=== PATIENT | female | born 1995 | race Caucasian/White ===

== ENCOUNTER 2019-10-22 12:07 | Outpatient (CLI) | payer OTHER, SELFPAY ==
[2019-10-22 12:27] LABS: Basophils Percent Auto 0.2 % (0.2-1.2); Eosinophils Absolute Auto 0.1 K/mm3 (0-0.3); Eosinophils Percent Auto 1.2 % (0-4.4); Hematocrit 39.1 % (37.0-47.0); Hemoglobin 13.1 g/dL (12.0-15.0); Immature Granulocyte Absolute 0.02 K/mm3 (0.00-0.031); Immature Granulocyte Percent A 0.2 % (0-0.5); Lymphocytes Absolute Auto 1.83 K/mm3 (0.9-3.2); Lymphocytes Percent Auto 21.4 % (18.3-44.2); Mean Corpuscular HGB Conc 33.5 g/dl (32-36); Mean Corpuscular Hemoglobin 29.9 pg (26-34); Mean Corpuscular Volume 89.3 fl (80-100); Mean Platelet Volume 12.5 fl (7.4-10.4); Monocytes Absolute Auto 0.4 K/mm3 (0.1-0.6); Monocytes Percent Auto 5.2 % (2.6-8.5); Neutrophils Absolute Auto 6.1 K/mm3 (1.3-6.7); Neutrophils Percent Auto 71.8 % (45.5-73.1); Platelet Count Result 149 k/mm3 (150-375); Red Blood Count 4.38 M/mm3 (4.2-5.4); White Blood Count 8.5 K/mm3 (4.5-10.0)
[2019-10-23 11:27] LABS: Rapid Plasma Reagin Non-Reactive (NonReactive)
== END 2019-10-22 12:08 | disposition home or self-care (01) ==
PROVIDERS: PCP Family Medicine; Visit Provider Obstetrics & Gynecology
DX: Z34.93 Encounter for supervision of normal pregnancy, unspecified, third trimester (principal); Z3A.00 Weeks of gestation of pregnancy not specified
CPT/HCPCS: 36415; 85025; 86592; 86850; 86900; 86901

== ENCOUNTER 2019-10-23 05:16 | Inpatient (IN) | payer OTHER, SELFPAY ==
[2019-09-25 12:33] VITALS: BMI 41.6
--- NOTE | 2019-10-22 06:13 | HP_ITS ---
DATE OF SERVICE: 10/23/2019 HISTORY OF PRESENT ILLNESS: The patient is 24-year-old G3, P1-1-0-2 at 39 weeks and 1 day gestation. She has had a history of 2 prior C-sections. She is coming in for a scheduled repeat and tubal ligation. Her has been uncomplicated. She is feeling normal movement, occasional contractions. No vaginal bleeding and no leakage of fluid. PAST MEDICAL HISTORY: Negative. MEDICATIONS: vitamin. ALLERGIES: NO KNOWN DRUG ALLERGIES. PAST SURGICAL HISTORY: x2. SOCIAL HISTORY: She has been smoking a pack a day prior to . She now smokes about half a pack a day. Denies alcohol or drug use. 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 OB HISTORY: She has had 2 C-sections, one was at 36 weeks and she had preeclampsia and one was at full-term. REVIEW OF SYSTEMS: Negative. PHYSICAL EXAMINATION: VITAL SIGNS: Her weight is 223, blood pressure 130/81. GENERAL: No apparent distress. HEART: Regular rate and rhythm. LUNGS: Clear to auscultation. ABDOMEN: Gravid, soft, nontender, nondistended. EXTREMITIES: Nontender with trace edema. PELVIC: Last cervical exam, 1 cm thick, -3 station, soft and posterior. ASSESSMENT AND PLAN: 1. G3, P1-1-0-2 at 39 weeks and 1 day with history of 2 prior C-sections. The plan is for repeat . 2. status is reassuring. 3. Desires tubal ligation. She had signed consent in the office on August 04, 2019 and has expressed a continued desire for sterilization, so the plan is for bilateral tubal ligation along with . 4. GBS is negative. D I MT: Radha
[2019-10-23] VITALS (57 sets, daily range): BP systolic 86–138; BP diastolic 34–99; PULSE 54–77; RESP 13–18; TEMP 36.2–37.4; O2SAT 96–100; BMI 42.5
--- NOTE | 2019-10-23 05:33 | LDADM ---
This patient, Marina Elaine, was admitted to Labor/Delivery/Recovery 120 on 10/23/19 at 05:16. Plans for labor, pain management and were discussed with patient. Patient/family oriented to hospital policies and general routines including ID bracelet, bed and alarms, visiting hours, pain management, procedures, bathroom and other care routines, personal items, smoking policy, room service/diet and guest tray routines, security routines, and visiting hours. Patient/Family are encouraged to report perceived risks to care and to ask questions if they do not understand what they are told or what they should do. See OBIX for further documentation.
[2019-10-23] MEDS: LACTATED RINGERS 1,000 ML 125 ML IV CONT ×2 (06:23→07:07)
--- NOTE | 2019-10-23 07:07 | WPDANESEPPF ---
Anes - Initial Pre Proc Eval Procedure: Operation Date: 10/23/19 07:30 Proposed Procedures p Repeat Section With Bilateral Tubal Ligation - Joy Boswell MD Date/Time: 10/23/19 07:07 Surgeon: Joy Boswell MD Pre Op Diagnosis: section Patient Data Age: 24 Gender: F Height: 5 ft 1 in Weight: 102 kg Allergies Allergy/AdvReac Type Severity Reaction Status Date / Time No Known Allergies Allergy Unverified 10/27/16 19:40 Patient hx anesthesia problems: none Family hx anesthesia problems: none PMFSH Past Medical History Medical History Morbid obesity Smoker Family History Family History Mother Diabetes mellitus Hypertension Father Hypertension Social History Social History Smoking packs per day: 0.75 Smoking cigarettes per day: 15.0 Years smoked: 1 Smoking pack-years: 0.75 Smoking status: Current every day smoker Tobacco type: cigarettes Second hand tobacco smoke exposure: No Substance use: never Gender identity (if verbalized by the patient): Female Spiritual care concerns: No Anes - Eval Final PreProcedure Day of Procedure 10/23/19 07:07 Patient weight: normal Heart: regular rate and rhythm Lungs: clear to auscultation Airway: Mallampati scale class II Neurological: alert and oriented Last oral intake: >/= 8 hours ASA classification: III Emergent: no Anesthetic plan: proceed Anesthesia type and monitoring: regional spinal and standard monitoring Informed Consent: The patient's anesthetic plan and its attendant risks and benefits were discussed with the patient/family/POA. Questions were solicited and answers provided to the satisfaction of the patient/family/POA.
--- NOTE | 2019-10-23 07:15 | PM.OP ---
Procedure Note - Brief Procedure Note - Brief Date of procedure: 10/23/19 Pre-op diagnosis: section Prior C/S X 2 and desires sterilization Post-op diagnosis: same Procedure performed: Repeat LTCS + BTL Anesthesia: spinal Surgeon: oJy Boswell MD Drains: Yes (Gonzalez) Packing: No Pathology: none sent Complications: No immediate complications Condition: stable Disposition: floor Findings: Female , double footling breech, Apgars 8/9, weight 7# 15oz; normal uterus, tubes, and ovaries
--- NOTE | 2019-10-23 09:29 | PC.NURSE ---
BENADRYL 25MG GIVEN IVP FOR ITCHING AT 09 AND UNABLE TO CHART IN THE MAR IT WAS DISCONTINUED.
[2019-10-23] MEDS: KETOROLAC 30 MG/ML VIAL (*BKC) IV PUSH (10:25)
[2019-10-23] MEDS: LORATADINE 10 MG TABLET PO (10:30)
[2019-10-23] MEDS: DEXTROSE 5%/0.45% SOD CHL 1,000 ML 125 ML IV CONT (11:15)
--- NOTE | 2019-10-23 14:00 | OP_ITS ---
DATE OF PROCEDURE: 10/23/2019 PREOPERATIVE DIAGNOSES: Prior section x2, 39 weeks gestation, desires sterilization. POSTOPERATIVE DIAGNOSES: Prior section x2, 39 weeks gestation, desires sterilization. PROCEDURE PERFORMED: Repeat low transverse section plus bilateral tubal ligation. ANESTHESIA: Spinal. ESTIMATED BLOOD LOSS: 675 mL. COMPLICATIONS: None. FINDINGS: Female infant in double footling breech presentation. Nuchal cord x1. Apgars 8 and 9. Weight 7 pounds 15 ounces. Normal uterus, tubes, and ovaries. INDICATIONS: This 24-year-old, G3, P1-1-0-2 at 39 weeks and 1 day gestation with history of 2 prior C-sections. She had expressed a desire throughout her for repeat and tubal ligation and was scheduled when she was 39 weeks. DESCRIPTION OF PROCEDURE: For the procedure, she was taken to the operating room where spinal anesthesia was obtained and found to be adequate. She was prepared and draped in the normal sterile fashion in the dorsal supine position with a leftward tilt. A Pfannenstiel skin incision was made with a scalpel and extended to the underlying layer of fascia with the scalpel. The fascia was incised in the midline and extended laterally with the Harris scissors. The underlying rectus muscles were dissected off bluntly and sharply. The peritoneum was entered sharply and extended inferiorly and superiorly with good visualization of the bladder. There were multiple adhesions of the omentum to the anterior abdominal wall. These were taken down using the Bovie cautery. The bladder blade was inserted. The vesicouterine peritoneum was tented up and entered sharply with the Metzenbaum scissors and extended laterally. The bladder flap was created sharply. The bladder blade was reinserted. The lower uterine segment was incised in a transverse fashion with the scalpel. The incision was digitally stretched in a cephalocaudad direction, the feet were the 1st part coming so the feet were grasped and likes brought easily through the incision. Gentle traction was then placed on the hips and to the level of the scapula had been delivered. The left arm which was at the anterior was flexed across the chest and brought easily through the incision and the was rotated 180 degrees. The other arm was then flexed across the chest and brought easily through the incision. The head was flexed and delivered easily. Nuchal cord x1 was reduced. Cord was clamped x2 and cut. The was passed to the waiting nurse. Cord gas and cord blood were obtained. The placenta was manually extracted. The uterus was exteriorized and cleared of all clots and debris. The uterine incision was closed using 0 Vicryl in a running locked fashion. A 2nd layer of the same suture was used for hemostasis and reinforcement. Attention was then turned to the right fallopian tube which was grasped with a Basia clamp. Two free ties of plain gut were placed around the fallopian tube and intervening segment was excised. Excellent hemostasis was visualized. The same procedure was then performed on the left fallopian tube. The uterine incision was reinspected and found to be hemostatic. The uterus was returned to the abdomen. The gutters were cleared of all clots and debris. The rectus muscles were inspected and any bleeding points were cauterized. Rectus muscles were reapproximated using a 0 Vicryl [id number] suture. The fascia was then closed using 0 Vicryl in a running fashion. The subcutaneous tissue was irrigated. All bleeding points were cauterized and the skin was closed using Insorb absorbable maryellen. She tolerated the procedure well. Sponge, lap, needle, and instrument counts were correct x2 and she was taken to the recovery room in
[2019-10-23] MEDS: DOCUSATE SODIUM 100 MG CAPSULE PO (14:10)
--- NOTE | 2019-10-23 16:30 | PC.NURSE ---
1109 Pt admitted to room 290 per stretcher from labor and delivery after repeat delivery of viable female at [address] Bos[address]. Mother is a and is choosing to breast feed infant. FOB has been here for delivery but left to care for children at home. Pt oriented to room, staffing and procedures. Admission folder reviewed. Pt's VSS and assessment WNL.
[2019-10-23] MEDS: IBUPROFEN 600 MG TABLET PO (16:39)
[2019-10-23] MEDS: LANOLIN (LANSINOH) 7.5 GM CREAM 1 APPLIC TOPICAL (16:40)
--- NOTE | 2019-10-23 19:26 | PC.NURSE ---
1645 Benadryl 25mg IVP given for c/o itching with good relief reported by pt
[2019-10-24 00:20] VITALS: BP 123/84; PULSE 66; RESP 15; TEMP 36.7; O2SAT 97
[2019-10-24] MEDS: IBUPROFEN 600 MG TABLET PO ×3 (00:27→16:40)
[2019-10-24 05:00] VITALS: BP 118/87; PULSE 71; RESP 14; TEMP 36.6; O2SAT 97
[2019-10-24 05:13] LABS: Basophils Percent Auto 0.2 % (0.2-1.2); Eosinophils Absolute Auto 0.1 K/mm3 (0-0.3); Eosinophils Percent Auto 1.1 % (0-4.4); Hematocrit 33.7 % (37.0-47.0); Hemoglobin 11.3 g/dL (12.0-15.0); Immature Granulocyte Absolute 0.03 K/mm3 (0.00-0.031); Immature Granulocyte Percent A 0.3 % (0-0.5); Lymphocytes Percent Auto 28.2 % (18.3-44.2); Mean Corpuscular HGB Conc 33.5 g/dl (32-36); Mean Corpuscular Hemoglobin 30.8 pg (26-34); Mean Corpuscular Volume 91.8 fl (80-100); Mean Platelet Volume 12.5 fl (7.4-10.4); Monocytes Absolute Auto 0.5 K/mm3 (0.1-0.6); Monocytes Percent Auto 5.5 % (2.6-8.5); Neutrophils Percent Auto 64.7 % (45.5-73.1); Platelet Count Result 114 k/mm3 (150-375); Red Blood Count 3.67 M/mm3 (4.2-5.4); Red Cell Distribution Width 14.3 % (11.5-14.5); White Blood Count 9.2 K/mm3 (4.5-10.0)
--- NOTE | 2019-10-24 07:42 | P.PNOB_ITS ---
OB - PN: Subj Subjective Date/time seen: 10/24/19 07:42 Patient comments: no complaints, pain well controlled, tolerating diet and flatus present OB - PN: Obj Data Labs CBC & Chem 7: 10/24/19 05:07 Labs: Laboratory Results - last 24 hr 10/24/19 05:07 WBC 9.2 RBC 3.67 L Hgb 11.3 L Hct 33.7 L MCV 91.8 MCH 30.8 MCHC 33.5 RDW 14.3 Plt Count 114 L MPV 12.5 H Immature Gran % (Auto) 0.3 Neut % (Auto) 64.7 Lymph % (Auto) 28.2 [place] % (Auto) 5.5 Eos % (Auto) 1.1 Baso % (Auto) 0.2 Lymph # (Auto) 2.60 [place] # (Auto) 0.5 Eos # (Auto) 0.1 Baso # (Auto) 0.0 Abs Immat Gran (auto) 0.03 Absolute Neuts (auto) 6.0 Absolute Nucleated RBC 0.0 Nucleated RBC % 0.0 OB - PN A/P Plan day: 1 Comments: Post Op LTCS - no problems, routine recovery Time Spent With Patient Time: Total time spent is greater than 50% in coordination of care (as doc umented) at patient's floor/unit and/or counseling patient: Exam Const: General: cooperative, healthy appearing, comfortable and no acute distress Resp: Auscultation: no crackles, no rales, no rhonchi and no wheezes Cardio: Rhythm: regular rhythm Heart sounds: no click and no murmurs GI: Inspection: non-distended Auscultation: normal bowel sounds Extrem: General: normal to inspection, no pedal edema and no calf tenderness
[2019-10-24 08:00] VITALS: BP 114/76; PULSE 72; RESP 16; TEMP 36.3; O2SAT 99
[2019-10-24] MEDS: DOCUSATE SODIUM 100 MG CAPSULE PO ×2 (09:07→16:41)
[2019-10-24] MEDS: MULTIVIT/MIN/PREN/FOL AC/IRON TABLET 1 TAB PO (09:07)
--- NOTE | 2019-10-24 10:05 | WPDANLDPN2 ---
Anes-Prog Note L&D Date/Time: 10/24/19 10:05 Comfortable throughout: section Neuraxial method: spinal Epidural/Spinal procedure site: clean & non-tender Neuro status: Neuro function grossly intact. Cardiovascular status: normal Respiratory status: normal Airway patency: baseline Mental status: baseline Post-Op hydration status: normal Vital Signs: Last Vital Signs Temp 36.3 C L 10/24/19 08:00 Pulse 72 10/24/19 08:00 Resp 16 10/24/19 08:00 BP 114/76 10/24/19 08:00 Pulse Ox 99 10/24/19 08:00 Pain score (VAS): 0/10. Patient resting in bed at time of assessment, appears comfortable. I/O: Intake & Output 10/23/19 10/24/19 10/24/19 23:59 07:59 15:59 Intake Total 1970 900 Output Total 2100 1075 Balance -130 -175 Post-procedural complaints: none Patient feedback: Patient satisfied with anesthetic care.
--- NOTE | 2019-10-24 10:05 | WPDANLDNPN2 ---
Anes-Prog Note L&D-Neuraxial Date/Time: 10/24/19 10:05 Neuraxial medications: intrathecal PF morphine Opiod-related complaints: none Patient feedback: Patient satisfied with post-operative pain management.
--- NOTE | 2019-10-24 10:20 | PC.NURSE ---
Upon entering mother has to breast. Mother is able to independently latch with appropriate positioning/alignment using cross cradle. Reviewed positioning/alignment, holding breast and asymmetrical latch on. was latched correctly. Infant nursed eagerly, with steady draws and frequent swallowing noted. Reviewed signs of a correct latch, effective nursing and suck swallow ratio. Infant was able to maintain latch without discomfort to mother. Nipple care reviewed. Instructed mother to call out for RN assistance if she is unable to latch for feeding or she has discomfort with nursing. Instructed feeding should be initiated three hours from start of last feeding or if feeding cues are noted before. Mother voiced understanding of information shared. Reviewed infant feeding cues, frequencies, duration of feedings, feeding elimination flow sheet, and signs of adequate intake. Demonstrated stimulation techniques to wake for feeding. Mother is pleased infant is latching, she has attempted with two other children, with latch issues and discontinued within days of . Mother is set up with [facility] and will contact her peer counselor for breastpump. Mother states she feels confident to continue effective at home. Reviewed transition to breast milk, signs of adequate intake, and engorgement/relief. Instructed to call ICP if intake/output less than required. Reviewed regular medications mother is taking. Information provided per Renetta. Reviewed community resources on the [facility] website and in the Mom/Baby guide. Information on outpatient services provided. Mother has no further questions at this time.
[2019-10-24] MEDS: TETANUS,DIPHTHERIA,AC PERTUSSIS ADULT (0.5 ML) BOOSTRIX IM (13:09)
[2019-10-24 20:25] VITALS: BP 110/69; PULSE 75; RESP 13; TEMP 36.5; O2SAT 99
[2019-10-25] MEDS: IBUPROFEN 600 MG TABLET PO ×3 (00:33→17:45)
[2019-10-25] MEDS: DOCUSATE SODIUM 100 MG CAPSULE PO ×2 (07:10→20:35)
[2019-10-25] MEDS: MULTIVIT/MIN/PREN/FOL AC/IRON TABLET 1 TAB PO (07:10)
[2019-10-25 08:30] VITALS: BP 140/86; PULSE 75; RESP 18; TEMP 36.4
--- NOTE | 2019-10-25 11:02 | P.PNOB_ITS ---
OB - PN: Subj Subjective Date/time seen: 10/25/19 11:02 Patient comments: no complaints baby status: doing well OB - PN: Obj Data Labs CBC & Chem 7: 10/24/19 05:07 OB - PN A/P Plan day: 2 Plan: discharge home Comments: Bp elevated, plan more bp and labs if wnl may go home, if abnormal w ill plan to stay until tomorrow for further evaluation. Pt asymptomatic Time Spent With Patient Time: Total time spent is greater than 50% in coordination of care (as documented) at patient's floor/unit and/or counseling patient: Exam Const: General: comfortable Resp: Effort & Inspection: normal respiratory effort Psych: Appearance: grossly normal Affect: normal affect Attitude: cooperative
[2019-10-25 11:32] LABS: Hematocrit 31.5 % (37.0-47.0); Hemoglobin 10.6 g/dL (12.0-15.0); Mean Corpuscular HGB Conc 33.7 g/dl (32-36); Mean Corpuscular Hemoglobin 30.7 pg (26-34); Mean Corpuscular Volume 91.3 fl (80-100); Mean Platelet Volume 12.4 fl (7.4-10.4); Platelet Count Result 133 k/mm3 (150-375); Red Blood Count 3.45 M/mm3 (4.2-5.4); Red Cell Distribution Width 14.5 % (11.5-14.5); White Blood Count 8.3 K/mm3 (4.5-10.0)
[2019-10-25 11:44] LABS: Alanine Aminotransferase 14 U/L (4-35); Albumin Level 2.8 g/dL (3.5-5.1); Alkaline Phosphatase 118 U/L (38-126); Aspartate Amino Transferase 20 U/L (14-36); Bilirubin,Total 0.1 mg/dL (0.2-1.3); Blood Urea Nitrogen 10 mg/dL (7-17); Calcium 8.4 mg/dL (8.4-10.2); Carbon Dioxide 27 mmol/L (22-30); Chloride 105 mmol/L (98-107); Estimated CRCL calculation 132 ml/min; Estimated Glomerular Filt Rate > 60; Glucose 109 mg/dL (65-105); Potassium 3.7 mmol/L (3.4-5.0); Sodium 134 mmol/L (137-145)
[2019-10-25 12:35] VITALS: BP 146/91; PULSE 94; RESP 18; TEMP 36.7; O2SAT 100
[2019-10-25 16:10] VITALS: BP 113/70; PULSE 81; O2SAT 96
[2019-10-25 20:20] VITALS: BP 132/81; PULSE 80; RESP 14; TEMP 36.8; O2SAT 99
[2019-10-26] MEDS: IBUPROFEN 600 MG TABLET PO ×2 (00:09→07:24)
[2019-10-26] MEDS: MULTIVIT/MIN/PREN/FOL AC/IRON TABLET 1 TAB PO (07:23)
[2019-10-26] MEDS: DOCUSATE SODIUM 100 MG CAPSULE PO (07:23)
[2019-10-26 09:08] VITALS: BP 140/79; PULSE 70; RESP 16; TEMP 36.7; O2SAT 96
--- NOTE | 2019-10-26 09:17 | PM.OBPNVD ---
OB - PN: Subj Subjective Date/time seen: 10/26/19 09:17 OB - PN: Obj Data Labs CBC & Chem 7: 10/25/19 11:26 10/25/19 11:26 Labs: Laboratory Results - last 24 hr 10/25/19 10/25/19 11:26 11:26 WBC 8.3 RBC 3.45 L Hgb 10.6 L Hct 31.5 L MCV 91.3 MCH 30.7 MCHC 33.7 RDW 14.5 Plt Count 133 L MPV 12.4 H Sodium 134 L Potassium 3.7 Chloride 105 Carbon Dioxide 27 BUN 10 Creatinine 0.60 L Estim Creat Clear Calc 132 Estimated GFR > 60 Glucose 109 H Calcium 8.4 Total Bilirubin 0.1 L AST 20 ALT 14 Alkaline Phosphatase 118 Total Protein 6.0 L Albumin 2.8 L OB - PN A/P Plan day: 3 Plan: discharge home Time Spent With Patient Time: Total time spent is greater than 50% in coordination of care (as documented) at patient's floor/unit and/or counseling patient: Review of Systems Review of Systems: All systems reviewed & are unremarkable except as noted in HPI and below Exam Const: General: comfortable Psych: Appearance: grossly normal Affect: normal affect Attitude: cooperative Judgement: Good judgement present (Psych)
--- NOTE | 2019-10-26 09:59 | PC.NURSE ---
Patient was given the opportunity to view the discharge video Mother & Baby Care, The First Two Weeks and to ask questions. Patient declined viewing the video and has been given the mother/baby guide for home reference.
--- NOTE | 2019-10-28 07:51 | PM.OBDSVD ---
DS: Discharge Diagnosis Discharge Diagnosis (1) Encounter for sterilization: Code(s): Z30.2 - Encounter for sterilization Status: Acute (2) : Code(s): Z34.90 - Encounter for supervision of normal , unspecified, unspecified trimester Status: Acute OB - DS: Summary OB Procedures : None OB Procedures Intrapartum: and Tubal ligation OB Procedures: : None Peripartum Data Infant Delivery Method: Section Procedures: Procedures Operation Date: 10/23/19 07:30 Actual Procedures Side Surgeon p Section Joy Boswell MD complications: none Status at Discharge Functional status at discharge: independent ambulation Overall status at discharge: patient is progressing back to baseline Time Spent with Patient Time attestation: Total time spent providing and/or coordinating discharge services: Time spent: Less than 30 minutes DS: Data Data Completed and Pending Completed studies during hospitalization: Pending at discharge 10/23/19 08:05 Surgical [PTH] Routine Discharge Plan Discharge Attending physician on discharge: Attila Serrato Discharging Clinician: Heidy Ramesh Patient Disposition: Home, Self-Care Activity: pelvic rest Diet: regular Discharge Instructions: Education: Mom and Baby Guide Given to: Mother Follow-Up: Call your delivering provider's office for an appointment to be seen in: 1 Week Mom and baby should come to the [facility] for the follow-up appointment. Appointment Date/Time: Sunday, October 27, 2019 at 9:00 am What to expect at your follow-up visit: Blood Pressure Check Physical Assessment Call [phone] if you are unable to keep your appointment time. BREAST CARE: 1. Wear a snug supportive bra. 2. For engorgement discomfort: Breast Feeding: A. Apply warm moist washcloths B. Express milk as needed to relieve engorgement C. Wear loose clothing 3. For sore nipples: A. Identify correct latch-on B. Apply warm moist washcloths before and after nursing C. Air dry nipples after nursing D. May apply Lansinoh cream to nipples ABDOMINAL INCISION: (if applicable) 1. Allow incision to air dry 2. Do NOT use lotions for powders on your incision 3. When showering, allow soap and water to run over the incision, but do not wash incision EPISIOTOMY/PERINEAL CARE: 1. Until bleeding stops, use your elizabeth bottle after urinating 2. Change your pad frequently throughout the day 3. You may take sitz baths several times a day (fill your bathtub with warm water and soak for 20 minutes.) Do NOT bathe in the water 4. No tub baths until seen by your physician - You may shower ACTIVITY: 1. Rest as much as possible. 2. Do not exercise or lift anything heavier than your baby (such as laundry or other children.) 3. Avoid stairs or driving as much as possible. 4. Do not put anything into the vagina. No douching, tampons, or sexual activity until seen by physician. NOTIFY PHYSICIAN IF YOU HAVE ANY QUESTIONS OR IF ANY OF THE FOLLOWING SYMPTOMS OCCUR: 1. If your incision becomes red, swollen, or more painful than what you have experienced in the hospital. 2. If your vaginal bleeding becomes foul smelling. 3. If your vaginal bleeding becomes more heavy than a period or if your bleeding changes from pink to bright red. However, you may pass an occasional walnut-sized clot once or twice for the first week . 4. If you experience a sharp, shooting pain in you calves. 5. If you discover a hard, reddened area on your breast or if you experience flu-like symptoms. DIET: 1. Eat regular, well-balanced meals. 2. Drink plenty of fluids daily. If , drink to thirst. Patient Instructions: How to Stop Smoking (DC) Stand Alone Forms: General Discharge Information Follow-up
== END 2019-10-26 11:20 | disposition home or self-care (01) | DRG 540 ==
LOC: ANHLDR 09:46 → ANHOB2 11:21
PROVIDERS: Advanced Practice Midwife; Admitting Provider Obstetrics & Gynecology; PCP Family Medicine; Visit Provider Obstetrics & Gynecology
PROC: 10D00Z1 Extraction of Products of Conception, Low, Open Approach (ICD-10-PCS; CPT 59514; principal; 2019-10-23 07:30)
DX: O32.8XX0 Maternal care for other malpresentation of fetus, not applicable or unspecified (principal); Z30.2 Encounter for sterilization; O34.211 Maternal care for low transverse scar from previous cesarean delivery; Z3A.39 39 weeks gestation of pregnancy; Z37.0 Single live birth; O99.334 Smoking (tobacco) complicating childbirth; F17.210 Nicotine dependence, cigarettes, uncomplicated; O99.214 Obesity complicating childbirth; E66.01 Morbid (severe) obesity due to excess calories
CPT/HCPCS: 36415; 80053; 85025; 85027; 88302; 90715; A9270; J0131; J1200; J1885; J2274; J2590; J7120

== ENCOUNTER 2022-02-08 07:45 | Outpatient (CLI) | payer OTHER, SELFPAY ==
--- NOTE | ~2022-02-08 | US_ITS ---
EXAMINATION: US pelvic complete w TV DATE: 02/08/2022 09:16 INDICATION: Irregular periods Comparison:No prior studies for comparison. TECHNIQUE: Multiple transabdominal and endovaginal sonographic images of the pelvis performed. FINDINGS: The uterus measures 11.8 x 6.2 x 4.9 cm. The endometrial complex measures 13 mm. The right ovary measures 5.5 x 4.8 x 5.1 cm and the left ovary measures 3.6 x 2.1 x 3.9 cm. There is a septated cyst of the right ovary measuring 5.4 cm maximum dimension. There are small follicles in e ach ovary. Normal doppler signal in both ovaries. There is no free fluid in the pelvis. There are no abnormal masses seen on either side. IMPRESSION: 1. Hemorrhagic right ovarian cyst measuring 4.9 cm. 2: Endometrial thickening measuring 13 mm. Reviewed, dictated and finalized at location B.
--- NOTE | ~2022-02-08 | US_ITS ---
EXAMINATION: US right upper quadrant DATE: 02/08/2022 08:41 INDICATION: Abdominal pain TECHNIQUE: Multiple grayscale and Doppler ultrasound images of the abdomen were obtained. COMPARISON: None available FINDINGS: Bowel gas obscures visualization of the pancreas. The visualized portions of the pancreas a re unremarkable. The liver demonstrates increased echogenicity, heterogenous echotexture, and decreas ed through transmission. No surface nodularity. Normal hepatopetal flow in the main portal vein. The gallbladder is normal with no abnormal wall thickening, pericholecystic fluid or stones. The normal c ommon bile duct measures 3 mm. There was no sonographic Vargas sign. IMPRESSION: 1. Diffuse hepatic steatosis. Reviewed, dictated and finalized at location A.
== END 2022-02-08 07:46 | disposition home or self-care (01) ==
LOC: CHSIMG 07:47
PROVIDERS: PCP Family Medicine; Visit Provider Physician Assistant
DX: R10.11 Right upper quadrant pain (principal); N92.6 Irregular menstruation, unspecified
CPT/HCPCS: 76705; 76830; 76856